=== PATIENT | female | born 1980 | race Hispanic/Latino ===

== ENCOUNTER 2018-09-24 10:23 | Outpatient (CLI) | payer OTHER ==
--- NOTE | 2018-09-24 11:59 | MRI ---
MRI Lower Ext Jt Rt WO Con History: [S8 32. 240 2A. Medial meniscal tear] Comparison: None. Findings: Medial meniscus: Intact Lateral meniscus: Intact ACL, PCL, MCL, LCL are all intact. Extensor mechanism: Quadriceps tendon, patella, and patellar tendon are intact Mild superolateral Hoffa's fat pad edema. Cartilage: Patellofemoral compartment: Multifocal 50% cartilage fissures at patellar apex and medial patellar fa cet. Medial compartment: Intact Lateral compartment: Few 50% thickness cartilage fissures of the central weightbearing surface of the lateral tibial plateau Muscles: Muscle signal and bulk is normal Mild tendinosis of the semimembranosus tendon with very mild subcortical insertional cysts. Impression: 1. Intact medial meniscus. 2. Moderate tendinosis of the semimembranosus at its insertion the posterior margin of the tibia with very small early subcortical reactive marrow change. 3. Grade 2 chondral fissures of the patellofemoral compartment and of the lateral tibial plateau jeni cular surface. 4. Mild superolateral Hoffa's fat pad edema suggesting patellar maltracking.
== END 2018-09-24 10:24 | disposition home or self-care (01) ==
LOC: SCSMRI 10:23
PROVIDERS: ATTEND Orthopaedic Surgery
DX: S83.242A Other tear of medial meniscus, current injury, left knee, initial encounter (principal); R60.0 Localized edema; M76.9 Unspecified enthesopathy, lower limb, excluding foot

== ENCOUNTER 2019-11-11 08:38 | Outpatient (CLI) | payer OTHER ==
[2019-11-11 13:41] LABS: Hemoglobin 11.9 g/dL (12.0-16.0); Mean Corpuscular HGB CONC 34.5 g/dL (32.0-36.0); Mean Corpuscular Hemoglobin 32.2 pg (27.0-31.0); Mean Corpuscular Volume 93.3 fL (78.0-98.0); Mean Platelet Volume 6.9 fL (7.4-10.4); Platelet Count 189 thou/uL (130-400); RBC Distribution Width 13.9 % (11.5-14.5); Red Blood Cell (RBC) Count 3.69 mill/uL (4.20-5.40)
[2019-11-11 14:19] LABS: Anion Gap 12 mmol/L (10-20); BUN (Urea Nitrogen) 15 mg/dL (7.0-18.7); Calc. Creatinine Clearance 0 mL/min (70-130); Calcium 9.1 mg/dL (7.8-10.44); Carbon Dioxide 24 mmol/L (22-29); Chloride 107 mmol/L (98-107); Estimated GFR-MDRD Greater than 90; Glucose 85 mg/dL (70-105); Potassium 3.9 mmol/L (3.5-5.1); Sodium 139 mmol/L (136-145)
[2019-11-12 12:19] LABS: SARS-CoV-2 MS2 Positive; SARS-CoV-2 N Gene Negative; SARS-CoV-2 S Gene Negative; SARS-CoV-2 orf1ab Negative
--- NOTE | 2019-11-13 18:02 | EKG ---
Test Reason : Blood Pressure : / mmHG Vent. Rate : 066 BPM Atrial Rate : 066 BPM P-R Int : 138 ms QRS Dur : 072 ms QT Int : 370 ms P-R-T Axes : 006 007 064 degrees QTc Int : 387 ms Normal sinus rhythm Possible Left atrial enlargement Borderline ECG When compared with ECG of 02-APR-2015 12:09, T wave amplitude has decreased in Lateral leads Confirmed by GENTRY KITCHEN (2) on 11/13/2019 6:01:51 PM Referred By: BELKYS Confirmed By:GENTRY KITCHEN
== END 2019-11-11 08:39 | disposition home or self-care (01) ==
LOC: LABBT 08:38
PROVIDERS: ATTEND Orthopaedic Surgery
DX: Z01.818 Encounter for other preprocedural examination (principal); Z11.59 Encounter for screening for other viral diseases; S83.001A Unspecified subluxation of right patella, initial encounter
CPT/HCPCS: 80048; 85027; 87635; 93005; 93010; U0003

== ENCOUNTER 2019-11-14 06:00 | Day surgery (SDC) | payer OTHER ==
[2019-11-08 11:16] VITALS: BMI 25.6
[2019-11-14] MEDS ORDERED: Fentanyl 100 MCG/2 ML VIAL ONE ×3 (06:18→09:17)
[2019-11-14] MEDS ORDERED: Midazolam HCl 2 mg/2 ml Vial ONE (06:54)
[2019-11-14] MEDS ORDERED: Bupivacaine HCl 0.5%/Epinephrine 1:200,000/PF 30 ml Vial ONE (08:06)
[2019-11-14] MEDS ORDERED: Meperidine HCl/PF 25 MG/ML VIAL ONE (08:53)
--- NOTE | 2019-11-14 09:13 | OP ---
DATE OF PROCEDURE: 11/14/2019 PREOPERATIVE DIAGNOSIS: Lateral subluxing patella of the right knee. POSTOPERATIVE DIAGNOSIS: Lateral subluxing patella of the right knee. PROCEDURES PERFORMED: Arthroscopy of the right knee with lateral retinacular release and open medial retinacular tightening. ANESTHESIA: General. DESCRIPTION OF PROCEDURE: The patient was given preoperative IV antibiotics, taken to the operating room, placed in supine position. Satisfactory general anesthesia was performed. The right lower extremity was placed in a leg yao and sterilely prepped and draped in usual fashion. After exsanguination, tourniquet of the right proximal thigh was raised to 300 mmHg. The knee was scoped in the usual anterior medial and anterior lateral portals. The patella was noted to ride laterally in the femoral trochlea. The remaining portion of the knee was normal. A lateral retinacular release was performed using an ArthroWand. The scope was then removed, and a longitudinal incision was made over the medial retinaculum, and a 1.5 inch incision was made just medial to the patella. The soft tissue was sharply and bluntly dissected from the medial retinacular area, which was then incised first with knife, then scissors. #1 Vicryl sutures were then passed in a [id number] type position. All the sutures were passed from high in the suprapatellar region down to the proximal tibia region and then were tied bringing the medial aspect of the medial retinaculum over the rest of the retinaculum and thus tightening it. The knee was placed through a range of motion. The patella rode well in the femoral trochlea. The wounds were then copiously irrigated. The larger wound was closed using 0 Vicryl for the fat and subcutaneous tissue, and all the skin incisions were closed with 3-0 Rapide. The wound was then infiltrated with a total of 30 mL of 0.5% Marcaine with epinephrine. Sterile dressing was applied. The leg was taken out of the leg yao. The tourniquet was released. The patient was awakened, extubated, and transferred to recovery room in stable condition. ESTIMATED BLOOD LOSS: Minimal. COMPLICATIONS: None. TOURNIQUET TIME: 34 minutes. DISCHARGE MEDICATION: [place] 10 one every 6 hours as needed for pain, #40. Job ID: [id number]
[2019-11-14] MEDS ORDERED: Dexamethasone 20 MG/5 ML VIAL ONE (10:01)
[2019-11-14] MEDS ORDERED: PROPOFOL 200 MG/20 ML VIAL ONE (10:01)
[2019-11-14] MEDS ORDERED: CEFAZOLIN 1 GM VIAL ONE (10:01)
[2019-11-14] MEDS ORDERED: Ondansetron PF 4 MG/2 ML Vial ONE (10:01)
[2019-11-14] MEDS ORDERED: Ketorolac Tromethamine 30 MG/ML VIAL ONE (12:00)
== END 2019-11-14 12:31 | disposition home or self-care (01) ==
LOC: SDC 06:00
PROVIDERS: ATTEND Orthopaedic Surgery
PROC: 0MNN0ZZ Release Right Knee Bursa and Ligament, Open Approach (ICD-10-PCS; principal; 2019-11-14)
PROC: 0MNN4ZZ Release Right Knee Bursa and Ligament, Percutaneous Endoscopic Approach (ICD-10-PCS; principal; 2019-11-14)
DX: S83.011A Lateral subluxation of right patella, initial encounter (principal)
CPT/HCPCS: J0670; J0690; J1100; J1885; J2175; J2250; J2405; J2704; J3010

== ENCOUNTER 2020-08-17 13:47 | Outpatient (CLI) | payer OTHER ==
[2020-08-17 16:11] LABS: Hemoglobin 11.5 g/dL (12.0-15.5); Mean Corpuscular HGB CONC 33.9 g/dL (32.0-36.0); Mean Corpuscular Hemoglobin 30.9 pg (27.0-33.0); Mean Corpuscular Volume 91.1 fl (81.6-98.3); Mean Platelet Volume 9.7 fl (7.4-10.4); Platelet Count 205 10x3/uL (150-450); RBC Distribution Width 15.6 % (11.5-14.5); Red Blood Cell (RBC) Count 3.72 10x6/uL (3.90-5.03); White Blood Cell (WBC) Count 6.2 10x3/uL (3.5-10.5)
[2020-08-17 16:29] LABS: Anion Gap 12 mmol/L (10-20); BUN (Urea Nitrogen) 11 mg/dL (7.0-18.7); Calc. Creatinine Clearance 0 mL/min (70-130); Calcium 9.2 mg/dL (7.8-10.44); Carbon Dioxide 26 mmol/L (22-29); Chloride 106 mmol/L (98-107); Glucose 99 mg/dL (70-105); Potassium 3.8 mmol/L (3.5-5.1); Sodium 140 mmol/L (136-145)
[2020-08-18 05:52] LABS: SARS-CoV-2 PCR by NAA Not Detected (NotDetected)
== END 2020-08-17 13:48 | disposition home or self-care (01) ==
LOC: LABBT 13:47
PROVIDERS: ATTEND Orthopaedic Surgery
DX: Z01.818 Encounter for other preprocedural examination (principal); Z20.822 Contact with and (suspected) exposure to COVID-19; M76.821 Posterior tibial tendinitis, right leg
CPT/HCPCS: 80048; 85027; 87635; 93005; 93010; U0003; U0005

== ENCOUNTER 2020-08-20 08:25 | Day surgery (SDC) | payer OTHER ==
[2020-08-19 14:06] VITALS: BMI 27.2
[2020-08-20] MEDS ORDERED: Famotidine/PF 20 mg/2ml Vial ONE (10:18)
[2020-08-20] MEDS ORDERED: Lidocaine 2% PF 5 ML VIAL ONE (10:21)
[2020-08-20] MEDS ORDERED: Bupivacaine PF 0.5% 30 ML VIAL ONE (10:21)
[2020-08-20] MEDS ORDERED: Fentanyl 100 MCG/2 ML VIAL ONE (10:36)
[2020-08-20] MEDS ORDERED: Lidocaine 1% PF 5 ML VIAL ONE (10:41)
[2020-08-20] MEDS ORDERED: Rocuronium Bromide 10 MG/ML (10ML VIAL) ONE (10:41)
[2020-08-20] MEDS ORDERED: Ondansetron PF 4 MG/2 ML Vial ONE (10:41)
[2020-08-20] MEDS ORDERED: Dexamethasone 20 MG/5 ML VIAL ONE (10:41)
[2020-08-20] MEDS ORDERED: PROPOFOL 200 MG/20 ML VIAL ONE (10:41)
[2020-08-20] MEDS ORDERED: Lidocaine 2% w/Epinephrine 1:200K 20 ML VIAL ONE (10:54)
[2020-08-20] MEDS ORDERED: SUGAMMADEX SODIUM 200 MG/2 ML VIAL ONE (11:18)
[2020-08-20] MEDS ORDERED: HYDROcodone/Acetaminophen 5/325 mg Tablet ONE (12:03)
== END 2020-08-20 14:07 | disposition home or self-care (01) ==
LOC: SDC 08:25
PROVIDERS: ATTEND Orthopaedic Surgery
PROC: 0LQN0ZZ Repair Right Lower Leg Tendon, Open Approach (ICD-10-PCS; principal; 2020-08-20)
DX: M76.821 Posterior tibial tendinitis, right leg (principal); Z79.1 Long term (current) use of non-steroidal anti-inflammatories (NSAID)
CPT/HCPCS: J0690; J1100; J2001; J2405; J2704; J3010; S0020; S0028

== ENCOUNTER 2024-12-06 10:16 | Day surgery (SDC) | payer MEDICAID ==
[2024-12-06] MEDS ORDERED: Acetaminophen 500 MG TAB ONE (11:53)
[2024-12-06] MEDS ORDERED: diphenhydrAMINE 25 MG CAP ONE (11:53)
[2024-12-06] MEDS: Acetaminophen 500 MG TAB PO SCH (11:54)
[2024-12-06] MEDS: diphenhydrAMINE 25 MG CAP PO SCH (11:54)
[2024-12-06 15:27] VITALS: BP 109/68; TEMP 99.1
== END 2024-12-06 15:01 | disposition home or self-care (01) ==
LOC: ONC/OP 10:16
PROVIDERS: ATTEND Internal Medicine
DX: D64.9 Anemia, unspecified (principal)
CPT/HCPCS: 36430; 86850; 86900; 86901; J1642; P9016

== ENCOUNTER 2024-12-20 09:39 | Day surgery (SDC) | payer MEDICAID ==
[2024-12-20] MEDS ORDERED: diphenhydrAMINE 25 MG CAP PO SCH (10:30)
[2024-12-20] MEDS ORDERED: Acetaminophen 500 MG TAB ONE (10:51)
[2024-12-20] MEDS: Acetaminophen 500 MG TAB PO SCH (10:51)
[2024-12-20 13:39] VITALS: BP 96/64; TEMP 98.1
== END 2024-12-20 13:40 | disposition home or self-care (01) ==
LOC: ONC/OP 09:39
PROVIDERS: ATTEND Internal Medicine
DX: D64.9 Anemia, unspecified (principal); D69.59 Other secondary thrombocytopenia; C50.411 Malignant neoplasm of upper-outer quadrant of right female breast
CPT/HCPCS: 36415; 36430; 80053; 82728; 83540; 83550; 86850; 86900; 86901; J1642; P9016

== ENCOUNTER 2025-01-01 09:45 | Day surgery (SDC) | payer MEDICAID ==
[2025-01-01] MEDS ORDERED: diphenhydrAMINE 25 MG CAP PO SCH (10:15)
[2025-01-01] MEDS ORDERED: Acetaminophen 500 MG TAB ONE (11:08)
[2025-01-01] MEDS: Acetaminophen 500 MG TAB PO SCH (11:08)
[2025-01-01 16:30] VITALS: BP 100/57; TEMP 99.1
== END 2025-01-01 16:38 | disposition home or self-care (01) ==
LOC: ONC/OP 09:45
PROVIDERS: ATTEND Internal Medicine
DX: D64.9 Anemia, unspecified (principal); D69.6 Thrombocytopenia, unspecified
CPT/HCPCS: 36415; 36430; 80053; 86850; 86900; 86901; J1642; P9016

== ENCOUNTER 2025-01-16 13:01 | Day surgery (SDC) | payer MEDICAID ==
[~2025-01-16 13:01] MED LIST: diphenhydrAMINE 25 MG CAP PO SCH
[2025-01-16] MEDS ORDERED: Acetaminophen 500 MG TAB ONE (13:57)
[2025-01-16] MEDS: Acetaminophen 500 MG TAB PO SCH (13:57)
[2025-01-16] MEDS ORDERED: PNEUMOC 20-VAL CONJ-DIP CRM/PF 0.5 ML SYRINGE IM ONE (14:45)
[2025-01-16 16:36] VITALS: BP 99/62; TEMP 98.5
== END 2025-01-16 16:55 | disposition home or self-care (01) ==
LOC: ONC/OP 13:01
PROVIDERS: ATTEND Internal Medicine
DX: D64.9 Anemia, unspecified (principal); D69.6 Thrombocytopenia, unspecified
CPT/HCPCS: 36430; 86850; 86900; 86901; J1642; P9016

== ENCOUNTER 2025-02-17 11:57 | Day surgery (SDC) | payer MEDICAID ==
[2025-02-17] MEDS ORDERED: diphenhydrAMINE 25 MG CAP ONE (12:46)
[2025-02-17] MEDS ORDERED: Acetaminophen 500 MG TAB ONE (12:46)
[2025-02-17] MEDS: diphenhydrAMINE 25 MG CAP PO SCH (12:47)
[2025-02-17] MEDS: Acetaminophen 500 MG TAB PO SCH (12:47)
[2025-02-17 16:46] VITALS: BP 114/77; TEMP 98
== END 2025-02-17 16:48 | disposition home or self-care (01) ==
LOC: ONC/OP 11:57
PROVIDERS: ATTEND Internal Medicine
DX: D64.9 Anemia, unspecified (principal); D69.6 Thrombocytopenia, unspecified
CPT/HCPCS: 36430; 86850; 86900; 86901; J1642; P9016

== ENCOUNTER 2025-03-03 11:54 | Day surgery (SDC) | payer MEDICAID ==
[2025-03-03] MEDS: diphenhydrAMINE 25 MG CAP ONE (12:11)
[2025-03-03] MEDS: Acetaminophen 500 MG TAB ONE (12:12)
[2025-03-03] MEDS ORDERED: diphenhydrAMINE 25 MG CAP PO SCH (12:30)
[2025-03-03] MEDS ORDERED: Acetaminophen 500 MG TAB PO SCH (12:30)
[2025-03-03 15:26] VITALS: BP 105/64; TEMP 98.1
== END 2025-03-03 15:44 | disposition home or self-care (01) ==
LOC: ONC/OP 11:54
PROVIDERS: ATTEND Internal Medicine
DX: D64.9 Anemia, unspecified (principal); D69.6 Thrombocytopenia, unspecified
CPT/HCPCS: 36430; 86850; 86900; 86901; J1642; P9016

== ENCOUNTER 2025-03-24 11:58 | Day surgery (SDC) | payer MEDICAID ==
[2025-03-24] MEDS ORDERED: diphenhydrAMINE 25 MG CAP ONE (12:50)
[2025-03-24] MEDS ORDERED: Acetaminophen 500 MG TAB ONE (12:50)
[2025-03-24 15:28] VITALS: TEMP 98.3
[2025-03-24 15:34] VITALS: BP 112/73
== END 2025-03-24 15:36 | disposition home or self-care (01) ==
LOC: ONC/OP 11:58
PROVIDERS: ATTEND Internal Medicine
DX: D64.9 Anemia, unspecified (principal); D69.59 Other secondary thrombocytopenia
CPT/HCPCS: 36430; 86850; 86900; 86901; J1642; P9016

== ENCOUNTER 2025-04-07 11:32 | Day surgery (SDC) | payer MEDICAID ==
[2025-04-07] MEDS ORDERED: diphenhydrAMINE 25 MG CAP PO SCH (12:00)
[2025-04-07] MEDS ORDERED: Acetaminophen 500 MG TAB ONE (13:08)
[2025-04-07] MEDS ORDERED: diphenhydrAMINE 25 MG CAP ONE (13:08)
[2025-04-07] MEDS: Acetaminophen 500 MG TAB PO SCH (13:15)
[2025-04-07 16:14] VITALS: BP 113/74; TEMP 99.3
== END 2025-04-07 16:29 | disposition home or self-care (01) ==
LOC: ONC/OP 11:32
PROVIDERS: ATTEND Internal Medicine
DX: D64.9 Anemia, unspecified (principal); D69.6 Thrombocytopenia, unspecified
CPT/HCPCS: 36430; 86850; 86900; 86901; J1642; P9016